=== PATIENT | female | born 1995 ===

== ENCOUNTER 2018-05-01 13:31 | Emergency (ER) | payer OTHER ==
--- NOTE | 2018-05-01 14:07 | EDM.PDOC ---
ED HPI GENERAL MEDICAL PROBLEM - General Chief Complaint: Back Pain or Injury Stated Complaint: BACK PAIN Time Seen by Provider: 05/01/18 14:07 Source of Information: Reports: Patient History Limitations: Reports: No Limitations - History of Present Illness INITIAL COMMENTS - FREE TEXT/NARRATIVE: HISTORY AND PHYSICAL: History of present illness: Patient is a 22-year-old female here with complaint of back pain. She states that last night she was carrying a heavy bag of dog food, set it down and when she stood up she felt a snap in her back. She states this brought her to the ground and since then is having difficulty getting around secondary to the pain. She states she is having numbness and tingling down her left lateral thigh to her knee. She states she had a similar injury about 6 months ago and went through physical therapy for this. She denies saddle anesthesia, lower extremity weakness or foot drop, bowel or bladder incontinence. She is taking motrin without relief of symptoms. Review of systems: As per history of present illness and below otherwise all systems reviewed and negative. Past medical history: As per history of present illness and as reviewed below otherwise noncontributory. Surgical history: As per history of present illness and as reviewed below otherwise noncontributory. Social history: No reported history of drug or alcohol abuse. Family history: As per history of present illness and as reviewed below otherwise noncontributory. Physical exam: General: Patient sitting comfortably in no acute distress and nontoxic appearing HEENT: Atraumatic, normocephalic, pupils reactive, negative for conjunctival pallor or scleral icterus, mucous membranes moist, throat clear, neck supple, nontender, trachea midline. No meningeal signs. Lungs: Clear to auscultation, breath sounds equal bilaterally, chest nontender. Heart: S1S2, regular, negative for clicks, rubs, or overt murmur. Abdomen: Soft, nondistended, nontender. Negative for masses or hepatosplenomegaly. Negative for costovertebral tenderness. Pelvis: Stable nontender. Genitourinary: Deferred. Rectal: Deferred. Spine: No vertebral tenderness or step-off patient. Pain to palpation of the lumbar paraspinals bilaterally. Extremities: Atraumatic, negative for cords or calf pain. Neurovascular unremarkable. Lower extremity strength is 5/5. Neuro: Awake, alert, oriented. Cranial nerves II through XII unremarkable. Cerebellum unremarkable. Motor and sensory unremarkable throughout. Exam nonfocal. Notes: Diagnostics: Declined Therapeutics: Toradol Norflex Prescriptions: Tramadol (#12) Impression: Lumbar back pain with radiculopathy Plan: 1. Heat or ice and motrin as instructed. You may take tramadol as needed for severe pain, do not take while driving as this may make you drowsy. 2. Follow up with primary care provider 3. Return to ED as needed as discussed Definitive disposition and diagnosis as appropriate pending reevaluation and review of above. Lower Back Pain Score (Numeric/FACES): 10 - Related Data Allergies Allergy/AdvReac Type Severity Reaction Status Date / Time No Known Allergies Allergy Verified 05/01/18 13:45 Home Meds: Home Meds traMADol [Ultram] 50 mg PO Q6H PRN #12 tab 05/01/18 [Rx] Past Medical History - Past Health History Medical/Surgical History: Denies Medical/Surgical History Social & Family History - Family History Family Medical History: Noncontributory - Tobacco Use Smoking Status *Q: Never Smoker - Recreational Drug Use Recreational Drug Use: No ED ROS GENERAL - Review of Systems Review Of Systems: ROS reveals no pertinent complaints other than HPI. ED EXAM,LOWER BACK PAIN/INJURY - Physical Exam Exam: See Below (see dictation) Course - Vital Signs Last Recorded V/S: Last Vital Signs Temp 98.9 F 05/01/18 13:43 Pulse 83 05/01/18 13:43 Resp 16 05/01/18 13:43 BP 125/57 L 05/01/18 13:43 Pulse Ox 95 05/01/18 13:43 - Orders/Labs/Meds Meds: Medications Discontinued Medications Generic Name Dose Route Start Last Admin Trade Name Freq PRN Reason Stop Dose Admin Ketorolac Tromethamine 60 mg 05/01/18 14:19 Toradol IM 05/01/18 14:20 ONETIME ONE Orphenadrine Citrate 60 mg 05/01/18 14:19 Norflex IM 05/01/18 14:20 NOW STA Departure - Departure Time of Disposition: 14:27 Disposition: Home, Self-Care 01 Condition: Good Clinical Impression: Lumbar radiculopathy - Discharge Information Prescriptions: traMADol [Ultram] 50 mg PO Q6H PRN #12 tab PRN Reason: Pain (Severe 7-10) Referrals: PCP,Unknown [Primary Care Provider] - Forms: ED Department Discharge Additional Instructions: The following information is given to patients seen in the emergency department who are being discharged to home. This information is to outline your options for follow-up care. We provide all patients seen in our emergency department with a follow-up referral. The need for follow-up, as well as the timing and circumstances, are variable depending upon the specifics of your emergency department visit. If you don't have a primary care physician on staff, we will provide you with a referral. We always advise you to contact your personal physician following an emergency department visit to inform them of the circumstance of the visit and for follow-up with them and/or the need for any referrals to a consulting specialist. The emergency department will also refer you to a specialist when appropriate. This referral assures that you have the opportunity for follow-up care with a specialist. All of these measure are taken in an effort to provide you with optimal care, which includes your follow-up. Under all circumstances we always encourage you to contact your private physician who remains a resource for coordinating your care. When calling for follow-up care, please make the office aware that this follow-up is from your recent emergency room visit. If for any reason you are refused follow-up, please contact the [facility] Emergency Department at and asked to speak to the emergency department charge nurse. [facility] [address] [place] [id number] [address] 1. Heat or ice and motrin as instructed. You may take tramadol as needed for severe pain, do not take while driving as this may make you drowsy. 2. Follow up with primary care provider 3. Return to ED as needed as discussed
[2018-05-01] MEDS ORDERED: Ketorolac 60 MG/2 ML SDV IM ONE (14:19)
== END 2018-05-01 14:53 | disposition home or self-care (01) ==
LOC: MW.ED 13:31
DX: M54.16 Radiculopathy, lumbar region (principal)
CPT/HCPCS: 96372; 99283; J1885; J2360